=== PATIENT | male | born 2000 | race Hispanic/Latino ===

== ENCOUNTER 2023-04-12 17:37 | Emergency (ER) | payer SELFPAY ==
[~2023-04-12] VITALS: Ht 165.1 cm; Wt 63.5 kg
[2023-04-12 17:37] VITALS: BP 141/72
[2023-04-12] MEDS ORDERED: BOOSTRIX IM ONE ×2 (18:30→18:36)
--- NOTE | 2023-04-12 18:50 | DIREP ---
PROCEDURE:XRAY ANKLE MIN 3VWS-LT COMPARISON:None. INDICATIONS:injury - pain FINDINGS: BONES:No acute fracture or osseous lesion. JOINTS:The joint spaces are intact. SOFT TISSUES:Normal. OTHER:No additional findings. CONCLUSION:No acute osseous abnormality. Dictated by: Gabe Moralez M.D. on 04/12/2023 at 06:49 PM
[2023-04-12 18:53] VITALS: BP 120/63
[2023-04-12] MEDS ORDERED: LIDOCAINE 1% VIAL ONE (18:55)
[2023-04-12] MEDS ORDERED: TRIPLE ANTIBIOTIC OINTMENT PKT TP ONE (18:56)
--- NOTE | 2023-04-12 19:17 | ER.PDOC ---
General Chief Complaint: Extremities Stated Complaint: FOOT LAC Time seen by MD: 18:00 Source: patient, family Exam Limitations: language barrier History of Present Illness Initial Comments Patient is a 22-year-old male with no reported past medical history who comes in with a left ankle injury. Patient and people with him states that patient was rhina when something fell and Busted open a spot on his foreskin patient bilaterally well-controlled at this time. Patient states 5 out of 10 pain made worse with palpation better with rest.Denies any other injuries or concerns at this time. Past Medical History Medical History: no pertinent history Surgical History: no surgical history Family History Significant Family History: no pertinent family hx Social History Smoking: less than 1 pack/day Alcohol Use: occassionally Drug Use: none Reviewed Nursing Reviewed: Vital Signs, Abn. Noted, Nursing Assessment Review of Systems Constitutional: no symptoms reported EENTM: no symptoms reported Respiratory: no symptoms reported Cardiovascular: no symptoms reported Gastrointestinal: no symptoms reported Genitourinary: no symptoms reported Musculoskeletal: no symptoms reported Skin: lesions Psychiatric/Neurological: no symptoms reported Physical Exam General Appearance: Alert, No Apparent Distress Foot: nml inspection, non-tender, nml color/temp, skin intact Ankle: tenderness (4 cm laceration) Knee: nml inspection, non-tender, nml ROM, no joint swelling Thigh/Hip: nml inspection Gait: normal Neuro/Vasc/Tendon: sensation nml, motor nml, no vascular compromise, tendon function nml Skin: warm/dry Head/ENT: nml inspection, pharynx nml Neck/Back: nml inspection, non-tender Abdomen: non-tender, pelvis stable ED LACERATION WOUND REPAIR Wound Location & Length (Requi: robertson Wound Length (cm): 4 Wound cleaned: hibiclens Distal NVT: neuro intact, vasc intact Anesthesia type: local Anesthesia: 1% Lidocaine Volume Anesthetic (ccs): 5 Wound's Depth, Shape: superficial Irrigated w/ Saline (ccs): 500 Wound Explored: no foreign body removed Wound Debrided: minimal Wound Repaired With: sutures Suture Size/Type: 4:0 Suture Style: interupted Number of Sutures: 4 Sterile Dressing Applied?: Yes Results/Orders Results/Orders Orders - NORBERTO JEWELL MD Diph,Nena(Acell),Tet Vac/Pf (Boostrix (04/12/23 18:30) Xr Ankle 3v Lt (04/12/23 18:02) Diph,Pertuss(Acell),Tet Vac/Pf (Boostrix (04/12/23 18:36) Lidocaine Hcl (Lidocaine 1% Vial) (04/12/23 18:55) Neomycin/Bacitracin/Polymyxinb (Triple A (04/12/23 18:56) Vital Signs Date Time Temp Pulse Resp B/P (MAP) Pulse Ox O2 Delivery O2 Flow Rate FiO2 04/12/23 18:53 98.9 72 18 120/63 (82) 96 Room Air* 0 21 04/12/23 17:37 98.9 86 18 96 04/12/23 17:37 98.9 86 18 04/12/23 17:37 98.9 86 18 141/72 (95) 96 Room Air* 0 21 Administered Medications Medications (Trade) Dose Ordered Sig/[place] Route PRN Reason Start Time Stop Time Status Last Admin Dose Admin Diphtheria/ Tetanus/Acell Pertussis (Boostrix) 0.5 ml ONCE ONCE IM 04/12/23 18:30 04/12/23 18:31 DC 04/12/23 18:37 0.5 ML Progress Progress Patient here with injury to robertson with laceration that will need to be repaired we will update patient's tetanus we will x-ray and continue to monitor. 191reassessmentpatient doing better was able to repair the laceration please see that portion of the note. I interpretation patient's x-ray shows no bony abnormality Radiology later agreed. Patient voiced understanding when to follow-up and when to return to the ER. ER DEPART Departure Time of Disposition: 19:17 Disposition: 01 HOME / SELF CARE / HOMELESS Impression: Primary Impression: Laceration Condition: Improved Patient Instructions: Laceration Care, Adult Referrals: PCP,UNKNOWN (PCP) PRIMARY CARE PROVIDER Additional Instructions: Follow-up with your primary care provider within the next week. If you have any new persistent or worsening symptoms or concerns seek medical attention. You will need to have the sutures removed in the next 7 days. Duration or Time Spent with Pa: 40 NORBERTO JEWELL MD Apr 12, 2023 19:17
[2023-04-12 19:21] VITALS: BP 121/62
== END 2023-04-12 19:22 | disposition home or self-care (01) ==
LOC: ER 17:37
DX: S91.012A Laceration without foreign body, left ankle, initial encounter (principal); W19.XXXA Unspecified fall, initial encounter; Y93.89 Activity, other specified; Y92.89 Other specified places as the place of occurrence of the external cause; Y99.8 Other external cause status
CPT/HCPCS: 99283; 90471; 12002; 90715; 73610; J2001